=== PATIENT | male | born 2005 | race Caucasian/White ===

== ENCOUNTER 2024-01-29 13:53 | Emergency (ER) | payer SELFPAY ==
[2024-01-29 14:47] LABS: Absolute Lymphocytes (CBC) 2.1 K/uL (0.7-4.9); Absolute Monocytes 1.2 K/uL (0.1-1.3); Absolute Neutrophil 9.5 K/uL (1.8-8.0); Basophils % 0.3 % (0-1.3); Eosinophils % 0.4 % (0-4.4); Hematocrit 46.7 % (39.6-49.0); Hemoglobin 15.9 g/dL (13.6-17.9); MCH 29.2 pg (27.0-35.0); MCHC 34.2 g/dL (32.0-36.0); MCV 85.4 fL (80-100); MPV 7.1 fL (7.6-11.3); Monocytes % 9.2 % (3.3-12.3); Neutrophils % 74.1 % (41.7-73.7); Nucleated Red Blood Cells % 0.2 % (0-0); Platelets 341 thou/uL (152-406); RBC Red Blood Cell Count 5.46 M/uL (4.33-5.43); Red Cell Distribution Width 13.6 % (12.1-15.2)
[2024-01-29 15:05] LABS: Anion Gap 10.5 mEq/L (5.0-15.0); Potassium 3.5 mEq/L (3.5-5.1)
[2024-01-29] MEDS ORDERED: MORPHINE 4 MG/ML SYR ONE (15:20)
[2024-01-29] MEDS ORDERED: TDAP (DIPHTH,PERTUSS(ACELL),TET VAC) 0.5 ML VIAL IMVAC ONE (15:20)
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
[2024-01-29 17:21] VITALS: TEMP 97.2
[2024-01-29 17:35] VITALS: BP 121/81; O2SAT 98
== END 2024-01-29 16:53 | disposition home or self-care (01) ==
LOC: ER 13:53
DX: S00.83XA Contusion of other part of head, initial encounter (principal); R51.9 Headache, unspecified; S40.212A Abrasion of left shoulder, initial encounter
CPT/HCPCS: 36415; 70450; 72125; 80048; 85025; 86850; 86900; 86901; 96372; 96374; 99284